=== PATIENT | male | born 1990 | race Caucasian/White ===

== ENCOUNTER 2018-08-27 05:44 | Emergency (ER) | payer SELFPAY ==
[~2018-08-27] VITALS: Ht 170.2 cm; Wt 113.4 kg
[2018-08-27 05:50] VITALS: Ht 170.2 cm; Wt 113.4 kg
[2018-08-27 09:42] VITALS: BP 115/80
== END 2018-08-27 09:42 | disposition home or self-care (01) ==
LOC: ED 05:44
DX: S61.412A Laceration without foreign body of left hand, initial encounter (principal); F10.129 Alcohol abuse with intoxication, unspecified; X58.XXXA Exposure to other specified factors, initial encounter; Y93.89 Activity, other specified; Y92.89 Other specified places as the place of occurrence of the external cause; Y99.8 Other external cause status
CPT/HCPCS: 90715